=== PATIENT | male | born 1965 | race Caucasian/White ===

== ENCOUNTER 2021-05-09 21:13 | Emergency (ER) | payer OTHER ==
[2021-05-09 21:21] VITALS: RESP 20; TEMP 98.3
[2021-05-09] MEDS ORDERED: FAMOTIDINE 20 MG TAB PO STA (21:46)
[2021-05-09] MEDS ORDERED: hydrOXYzine HCL 25 MG TAB PO STA (21:46)
[2021-05-09] MEDS ORDERED: DEXAMETHASONE SOD PHOSPHATE 10 MG/ML 1 ML VIAL IM STA (21:46)
[2021-05-09] MEDS ORDERED: ALBUTEROL NEBULIZED 2.5 MG/3 ML INHALATION STA (21:46)
--- NOTE | 2021-05-09 21:50 | ED ---
Allergic Reaction HPI - General Chief complaint: Allergic Reaction Stated complaint: bee sting, allergic reaction Time Seen by Provider: 05/09/21 21:25 Source: patient, family, RN notes reviewed, old records reviewed Mode of arrival: ambulatory Limitations: no limitations - History of Present Illness Initial Comments: This is a 55-year-old male presents today for evaluation of what he believes his left upper extremity bug bite. Patient did admit to some tightness or itchiness of his throat as well itching and swelling of his right eye. Patient currently is without shortness of breath does not feel like his throat is closing with no swelling of his tongue. He does not recall if it was a bee but he did feel the right he has had ALLERGIC reaction to bees in the past. Patient has otherwise no significant medical history takes no medications. MD Complaint: allergic reaction, facial swelling (Right eye supraorbital swe lling) -: hour(s) (3) Exposure: insect bite Symptoms: rash, itching, facial swelling Severity: moderate Treatment Prior to Arrival: none Previous Allergy History: none - Related Data Allergies Allergy/AdvReac Type Severity Reaction Status Date / Time No Known Allergies Allergy Verified 05/09/21 21:21 Review of Systems ROS Statement: Those systems with pertinent positive or pertinent negative responses have been documented in the HPI. ROS Other: All systems not noted in ROS Statement are negative. Past Medical History Past Medical History: No Reported History History of Any Multi-Drug Resistant Organisms: None Reported Past Surgical History: No Surgical Hx Reported Past Psychological History: No Psychological Hx Reported Smoking Status: Current every day smoker Past Alcohol Use History: Occasional Past Drug Use History: None Reported General Exam Limitations: no limitations General appearance: alert, in no apparent distress Head exam: Present: atraumatic, normocephalic, normal inspection, other (does have significant right eye significant supraorbital swelling and edema) Eye exam: Present: normal appearance, PERRL, EOMI. Absent: scleral icterus, conjunctival injection, periorbital swelling ENT exam: Present: normal exam, mucous membranes moist Neck exam: Present: normal inspection. Absent: tenderness, meningismus, lymphadenopathy Respiratory exam: Present: normal lung sounds bilaterally. Absent: respiratory distress, wheezes, rales, rhonchi, stridor Cardiovascular Exam: Present: regular rate, normal rhythm, normal heart sounds. Absent: systolic murmur, diastolic murmur, rubs, gallop, clicks GI/Abdominal exam: Present: soft, normal bowel sounds. Absent: distended, tenderness, guarding, rebound, rigid Extremities exam: Present: normal inspection, full ROM, normal capillary refill, other (Left upper extremity area of reaction wheel and edema). Absent: tenderness, pedal edema, joint swelling, calf tenderness Back exam: Present: normal inspection Neurological exam: Present: alert, oriented X3, CN II-XII intact Psychiatric exam: Present: normal affect, normal mood Skin exam: Present: warm, dry, intact, normal color. Absent: rash Course Vital Signs 05/09/21 21:17 Temperature 98.3 F Pulse Rate 90 Respiratory 20 Rate Blood Pressure 126/83 O2 Sat by Pulse 97 Oximetry - Reevaluation(s) Reevaluation #1: 05/09/21 21:53 Medical record is reviewed Reevaluation #2: 05/09/21 21:53 symptoms are improved Reevaluation #3: 05/09/21 21:53 Patient informed results and plan, questions answered Medical Decision Making - Medical Decision Making 55 male to the ER for evaluation patient presents today for evaluation regards to likely insect bite possibly bee sting, swelling of right eye left arm and some scratchiness oh. Symptoms are improved here in the ER no stridor or shortness of breath no signs of anaphylaxis, patient can be discharged Disposition Clinical Impression: Allergic reaction, Urticaria, Hymenoptera reaction Disposition: HOME SELF-CARE Condition: Good Instructions (If sedation given, give patient instructions): Insect Bite or Sting (ED) Is patient prescribed a controlled substance at d/c from ED?: No Referrals: None,Stated [Primary Care Provider] - 1-2 days
[2021-05-09 22:29] VITALS: BP 116/83
[2021-05-09 23:01] VITALS: PULSE 85
== END 2021-05-09 23:01 | disposition home or self-care (01) ==
LOC: EC 21:13
DX: T63.441A Toxic effect of venom of bees, accidental (unintentional), initial encounter (principal); L50.0 Allergic urticaria; F17.200 Nicotine dependence, unspecified, uncomplicated
CPT/HCPCS: 99282; 96372; 94640; J1100